=== PATIENT | male | born 1980 | race Caucasian/White ===

== ENCOUNTER 2017-08-23 19:28 | Emergency (ER) | payer MEDICAID ==
[2017-08-24] MEDS: KETOROLAC 30 MG INJ IM (00:38)
[2017-08-24] MEDS: CLINDAMYCIN 300 MG INJ IM (00:45)
[2017-08-24] MEDS: LIDOCAINE 1% (MDV) 20 ML INJ SC (01:02)
== END 2017-08-24 01:40 | disposition home or self-care (01) ==
LOC: FTE 19:28
DX: L03.011 Cellulitis of right finger (principal); J45.909 Unspecified asthma, uncomplicated
CPT/HCPCS: 10060; 96372; 99284-25